=== PATIENT | male | born 1945 ===

== ENCOUNTER → 2021-06-19 | Outpatient (CLI) | payer MEDICARE, OTHER ==
--- NOTE | 2021-06-19 14:38 | RAD ---
Bone Densitometry History: Reason: OSTEOPOROSIS, LOSS OF HEIGHT / Spl. Instructions: / History: Findings: Bone Densitometry was performed with dual photon absorption of the lumbar spine and proximal right fe mur. Lumbar Spine: Bone density is 1.301 g/cm2 for L1-L4. T-score is 0.7. Z-score is 1.1. Total right femur: Bone density is 0.900 g/cm2. T-score is -1.0 Z-score is -0.2. IMPRESSION: Normal bone mineral density in the lumbar spine and right femur.. World [employer] Organization definition of osteoporosis and osteopenia for women: normal equal s T score at or above -1.0 standard deviations; osteopenia equals T score between -1.0 and -2.5 stand lynn deviations; osteoporosis equals T score at or below -2.5 standard deviations. Electronically signed by: Kristi Rodriguez MD (06/19/2021 2:35 PM) [id number]
== END ==
LOC: DXRAD 13:25
PROVIDERS: ATTEND Physician Assistant
DX: M81.8 Other osteoporosis without current pathological fracture (principal); Z85.038 Personal history of other malignant neoplasm of large intestine
CPT/HCPCS: 77080